=== PATIENT | female | born 1985 | race African-American/Black ===

== ENCOUNTER 2017-04-21 14:27 | Emergency (ER) | payer OTHER ==
[~2017-04-21] VITALS: Ht 162.6 cm; Wt 81.6 kg
[2017-04-21 14:35] VITALS: BP_SYST 147
[2017-04-21] MEDS ORDERED: DIPHENHYDRAMINE INJ 50 MG/ML VIAL IVP ONE (14:45)
[2017-04-21] MEDS ORDERED: MORPHINE 2 MG/ML INJ. SYRINGE IVP ONE (14:45)
[2017-04-21] MEDS ORDERED: HYDROmorphone 1 MG INJ. 1 MG/ML AMPUL IVP ONE (16:00)
[2017-04-21] MEDS ORDERED: ONDANSETRON HCL 4 MG/2 ML VIAL IVP ONE (16:00)
[2017-04-21] MEDS ORDERED: ONDANSETRON HCL 4 MG/2 ML VIAL ONE (16:01)
[2017-04-21 16:51] VITALS: BP_SYST 142
== END 2017-04-21 16:51 | disposition home or self-care (01) ==
LOC: SED 14:27
DX: S82.232A Displaced oblique fracture of shaft of left tibia, initial encounter for closed fracture (principal); R03.0 Elevated blood-pressure reading, without diagnosis of hypertension; W19.XXXA Unspecified fall, initial encounter; Y93.01 Activity, walking, marching and hiking; Y92.89 Other specified places as the place of occurrence of the external cause; Y99.8 Other external cause status
CPT/HCPCS: 29515; 73610; 96374; 96375; 99284; J1170; J1200; J2270; J2405